=== PATIENT | female | born 1940 | race Caucasian/White ===

== ENCOUNTER 2019-03-29 12:02 | Emergency (ER) | payer MEDICARE, OTHER ==
[~2019-03-29] VITALS: Ht 160 cm; Wt 71.3 kg
[~2019-03-29 12:02] MED LIST: CEPH-443 PO
[2019-03-29 12:09] VITALS: BP 112/67; PULSE 98; RESP 20; Ht 160 cm; Wt 71.3 kg
[2019-03-29] MEDS ORDERED: CEPHALEXIN 500 MG CAP PO ONE (14:00)
== END 2019-03-29 14:34 | disposition home or self-care (01) ==
LOC: FTE 12:02
DX: N39.0 Urinary tract infection, site not specified (principal); I10 Essential (primary) hypertension
CPT/HCPCS: 99283